=== PATIENT | female | born 1985 | race Caucasian/White ===

== ENCOUNTER 2017-07-03 11:02 | Day surgery (SDC) | payer OTHER ==
[~2017-07-03 11:02] MED LIST: EPINEPHrine 1MG/ML INJ 30ML MD-VIAL As Ordered; LIDOCAINE W/EPINEPHRINE 1% 20ML VIAL As Ordered; METHYLENE BLUE 0.5% (5MG/ML) 10 ML AMP (PROVAYBLUE)(Q9968 PER 1MG) As Ordered
[2017-07-03] MEDS ORDERED: ROCURONIUM BROMIDE 50 MG/5 ML VIAL As Ordered (11:11)
[2017-07-03] MEDS ORDERED: PROPOFOL 200 MG/20 ML VIAL As Ordered (11:11)
[2017-07-03] MEDS ORDERED: LIDOCAINE 2% INJ 100 MG/5 ML SDV (FOR ANES.) As Ordered (11:11)
[2017-07-03] MEDS ORDERED: fentaNYL 100 MCG/2 ML INJECTION (J3010) As Ordered ×2 (11:12→13:00)
[2017-07-03] MEDS ORDERED: MIDAZOLAM INJ 2 MG/2 ML VIAL (J2250) As Ordered (11:12)
[2017-07-03] MEDS ORDERED: dexameTHASONE 4 MG/ML 1ML VIAL (J1100) As Ordered (11:12)
[2017-07-03] MEDS ORDERED: ONDANSETRON 4MG/2ML VIAL (J2405) As Ordered (11:12)
[2017-07-03] MEDS: LR 1,000 ML IV (11:29)
[2017-07-03] MEDS ORDERED: GLYCOPYRROLATE INJ 0.2 MG/ML 2 ML VIAL As Ordered ×2 (12:28)
[2017-07-03] MEDS ORDERED: NEOSTIGMINE 10 MG/10 ML VIAL (J2710) As Ordered (12:28)
[2017-07-03] MEDS ORDERED: NORCO, ANEXSIA 5/325MG TABLET (HYDROcodone/ACETAMINOPHEN) As Ordered (12:51)
[2017-07-03] MEDS: NORCO, ANEXSIA 5/325MG TABLET (HYDROcodone/ACETAMINOPHEN) PO ×2 (13:05→14:13)
[2017-07-03] MEDS: fentaNYL 100 MCG/2 ML INJECTION (J3010) IV ×3 (13:10→13:31)
[2017-07-03] MEDS ORDERED: METOCLOPRAMIDE INJ 10MG/2ML VIAL (J2765) IV (13:15)
[2017-07-03] MEDS ORDERED: LR 1,000 ML IV (13:15)
[2017-07-03] MEDS ORDERED: MEPERIDINE INJ 25 MG/ML VIAL (J2175) IV (13:15)
[2017-07-03] MEDS ORDERED: ONDANSETRON 4MG/2ML VIAL (J2405) IV (13:15)
== END 2017-07-03 14:15 | disposition home or self-care (01) ==
LOC: M SDC 11:02
DX: J34.2 Deviated nasal septum (principal); Z88.0 Allergy status to penicillin; Z88.8 Allergy status to other drugs, medicaments and biological substances; F17.210 Nicotine dependence, cigarettes, uncomplicated; F41.9 Anxiety disorder, unspecified; F31.9 Bipolar disorder, unspecified; Z79.899 Other long term (current) drug therapy
CPT/HCPCS: 30520

== ENCOUNTER → 2021-03-14 | Outpatient (CLI) | payer OTHER ==
[~2021-03-14] MED LIST changes: -EPINEPHrine 1MG/ML INJ 30ML MD-VIAL As Ordered; +LAMO200T3 PO; -LIDOCAINE W/EPINEPHRINE 1% 20ML VIAL As Ordered; -METHYLENE BLUE 0.5% (5MG/ML) 10 ML AMP (PROVAYBLUE)(Q9968 PER 1MG) As Ordered; +TRAZ-252 PO
== END ==
LOC: M PLAIMG 11:27
PROVIDERS: ATTEND Physician Assistant Medical
DX: G44.001 Cluster headache syndrome, unspecified, intractable (principal)

== ENCOUNTER → 2022-01-15 | Outpatient (CLI) | payer OTHER ==
[2022-01-15 14:05] LABS: HEMOGLOBIN A1c 5.4 % (4.0-6.0)
[2022-01-15 15:11] LABS: FOLLICLE STIMULATING HORMONE 7.1 mIU/ML; LUTEINIZING HORMONE 3.5 mIU/ML
[2022-01-15 15:12] LABS: PROLACTIN 7.22 NG/ML
[2022-01-15 15:13] LABS: PROGESTERONE 0.44 NG/ML
[2022-01-16 11:08] LABS: TESTOSTERONE FREE (DIRECT) 3.9 pg/mL (0.0-4.2)
== END ==
LOC: M PLALAB 10:56
PROVIDERS: ATTEND Specialist
DX: E28.2 Polycystic ovarian syndrome (principal)
CPT/HCPCS: 36415; 83001; 83002; 83036; 84144; 84146; 84402; 84403; G0463

== ENCOUNTER 2024-01-13 10:14 | Day surgery (SDC) | payer OTHER ==
[~2024-01-13] VITALS: Ht 149.9 cm; Wt 98.1 kg
[~2024-01-13 10:14] MED LIST changes: +ACETAMINOPHEN 500 MG TAB PO ONE; +ALBU8.5H; +IBUP80TA PO; +LEVOTAB10 PO; +MONT10TA97 PO; +OXYB5TAB14 PO; +SEMA0.252; +TAMS1CAP17 PO; +TOPI-21 PO
[2024-01-13 11:03] LABS: HEMATOCRIT 42.6 % (36.0-47.0); HEMOGLOBIN 14.1 g/dl (12.0-15.5); MEAN CORPUSCULAR HEMOGLOBIN 29.4 pg (27.0-33.0); MEAN CORPUSCULAR HGB CONC 33.1 g/dl (32.0-36.5); MEAN CORPUSCULAR VOLUME 88.8 fl (80.0-96.0); PLATELET COUNT, AUTOMATED 290 10^3/uL (150-450)
[2024-01-13] MEDS: SCOPOLAMINE 1MG TRANSDERMAL PATCH TOP ONE (11:19)
[2024-01-13] MEDS ORDERED: NS 1,000 ML IV SCH ×2 (11:20→13:30)
[2024-01-13 11:31] LABS: HCG, SERUM QUALITATIVE NEGATIVE (NEGATIVE)
[2024-01-13] MEDS ORDERED: fentaNYL 100 MCG/2 ML INJECTION As Ordered ONE (11:32)
[2024-01-13] MEDS ORDERED: MIDAZOLAM INJ 2MG/2ML VIAL As Ordered ONE (11:32)
[2024-01-13] MEDS ORDERED: propofoL 200 MG/20 ML VIAL As Ordered ONE (11:33)
[2024-01-13] MEDS ORDERED: ONDANSETRON 4MG 2ML VIAL As Ordered ONE (11:33)
[2024-01-13] MEDS ORDERED: LIDOCAINE 2% 100MG/5ML SDV (FOR ANES.) As Ordered ONE (11:33)
[2024-01-13] MEDS ORDERED: KETOROLAC 60MG 2ML VIAL As Ordered ONE (11:33)
[2024-01-13] MEDS ORDERED: ACETAMINOPHEN 1000MG/100ML IV BAG As Ordered ONE (11:39)
[2024-01-13] MEDS ORDERED: ONDANSETRON 4MG 2ML VIAL IV PRN (13:30)
[2024-01-13] MEDS ORDERED: fentaNYL 100 MCG/2 ML INJECTION IV PRN (13:30)
[2024-01-13] MEDS ORDERED: HYDROMORPHONE HCL 0.5 MG/ 0.5 ML SYRINGE IV PRN (13:30)
[2024-01-13] MEDS: SILVER NITRATE APPLICATOR (1 = QTY 10) As Ordered ONE (13:40)
[2024-01-13] MEDS: LIDOCAINE 1% SDV 30ML VIAL As Ordered ONE (13:40)
[2024-01-13 14:30] VITALS: BP 131/61; TEMP 97.6; O2SAT 96
== END 2024-01-13 14:40 | disposition home or self-care (01) ==
LOC: M SDC 10:14
PROVIDERS: ATTEND Student in an Organized Health Care Education/Training Program
DX: N93.9 Abnormal uterine and vaginal bleeding, unspecified (principal); E28.2 Polycystic ovarian syndrome; N84.0 Polyp of corpus uteri; F31.9 Bipolar disorder, unspecified; F41.9 Anxiety disorder, unspecified; F32.A Depression, unspecified; K76.0 Fatty (change of) liver, not elsewhere classified; Z79.51 Long term (current) use of inhaled steroids; F17.200 Nicotine dependence, unspecified, uncomplicated; K58.8 Other irritable bowel syndrome; Z88.0 Allergy status to penicillin; Z88.5 Allergy status to narcotic agent; Z88.1 Allergy status to other antibiotic agents
CPT/HCPCS: 36415; 58558; 84703; 85027; 86850; 86900; 86901; 88305; G0123; J1100; J1885; J2250; J2405; J3010